=== PATIENT | female | born 1970 | race Caucasian/White ===

== ENCOUNTER 2017-05-11 04:09 | Emergency (ER) | payer OTHER ==
[~2017-05-11] VITALS: Ht 165.1 cm; Wt 121.3 kg
[~2017-05-11 04:09] MED LIST: TPM100 PO; TRAZ100T29 PO
[2017-05-11 04:14] VITALS: TEMP 36.6; Ht 165.1 cm; Wt 121.3 kg
[2017-05-11] MEDS ORDERED: KETOROLAC TROMETHAMINE 30 MG/ML VIAL IV STA (04:32)
[2017-05-11] MEDS ORDERED: PROCHLORPERAZINE 5 MG/ML 2 ML VIAL IV STA (04:32)
[2017-05-11] MEDS ORDERED: DiphenhydrAMINE HCL 50 MG/ML VIAL IV STA (04:32)
[2017-05-11] MEDS ORDERED: SODIUM CHLORIDE 0.9% 1000ML 1,000 ML IV ONE (04:45)
[2017-05-11] MEDS ORDERED: DEXAMETHASONE **PF** INJ 10 MG/ML VIAL IV ONE (04:45)
[2017-05-11 06:10] VITALS: BP 103/77; PULSE 81; O2SAT 96
--- NOTE | 2017-05-12 00:03 | EMERGENCY ROOM VISIT NOTE ---
History First contact with patient: 04:16 Chief Complaint: HEADACHE Stated Complaint: MIGRAINE History of Present Illness The patient is a 46 year old female who presents to the Emergency Room with complaints of migraine headache symptoms that have been worsening over the past one day. The patient reports a history of chronic migraine headaches. She does take Topamax daily and usually this helps control her symptoms well. She has had breakthrough migraines in the past, and this feels similar to her bad migraines. She has attempted ibuprofen at home without relief of symptoms. She has not had fever or chills. Relates to worsen her symptoms, but she is without neck pain, chest pain, chest tightness, shortness of breath, numbness, or paresthesias. She states that previous imaging of her head has been normal. She rates her discomfort a 9/10. Review of Systems More than 10 systems were reviewed and otherwise negative with the exception of history of present illness. Past Medical/Surgical History Medical Problems: (1) Migraines Surgical Problems: (1) History of hysterectomy Family History FHx: cancer FHx: hypertension Social History Smoking Status: Never Smoker Alcohol Use: none Drug Use: none Marital Status: single Housing Status: lives with family Occupation Status: employed Current/Historical Medications Scheduled Topiramate (Topiramate), 100 MG PO BID Trazodone Hcl (Trazodone), 100 MG PO HS Physical Exam Vital Signs Date Time Temp Pulse Resp B/P (MAP) Pulse Ox O2 Delivery O2 Flow Rate FiO2 05/11/17 06:10 81 18 103/77 96 05/11/17 05:15 84 18 108/72 95 Room Air 05/11/17 04:14 36.6 100 18 152/110 95 Room Air Physical Exam VITALS: Vitals are noted on the nurse's note and reviewed by myself. Vital signs stable. GENERAL: Well-developed, well-nourished, white female, who appears uncomfortable and is resting in a darkened emergency department room. NECK: Supple without nuchal rigidity. No lymphadenopathy. No thyromegaly. Cervical spine is nontender. No meningismus. HEART: Regular rate and rhythm without murmurs gallops or rubs. LUNGS: Clear to auscultation bilaterally without wheezes, rales or rhonchi. No retractions or accessory muscle use. ABDOMEN: Positive normal bowel sounds x 4. Soft, nontender, without masses or organomegaly. No guarding or rebound tenderness. MUSCULOSKELETAL: No muscle atrophy, erythema, or edema noted. Full range of motion without joint tenderness in all extremities. NEURO: Patient was alert and oriented to person place and time. CN II through XII grossly intact. No focal neurological deficits Medical Decision & Procedures Medications Administered Medications (Trade) Dose Ordered Sig/Tamar Route Start Time Stop Time Status Last Admin Dose Admin Diphenhydramine HCl (Benadryl Inj) 50 mg NOW STAT IV 05/11/17 04:32 05/11/17 04:34 DC 05/11/17 04:32 50 MG Prochlorperazine Edisylate (Compazine Inj) 10 mg NOW STAT IV 05/11/17 04:32 05/11/17 04:34 DC 05/11/17 04:32 10 MG Sodium Chloride 1,000 ml @ 999 mls/hr Q1H1M ONCE IV 05/11/17 04:45 05/11/17 05:45 DC 05/11/17 04:45 999 MLS/HR Ketorolac Tromethamine (Toradol Inj) 30 mg NOW STAT IV 05/11/17 04:32 05/11/17 04:34 DC 05/11/17 04:32 30 MG Dexamethasone Sodium Phosphate (Dexamethasone Inj Pf) 10 mg NOW ONCE IV 05/11/17 04:45 05/11/17 04:46 DC 05/11/17 04:45 10 MG ED Course Physical exam and history were performed. Nursing notes, EMR, and Medication List were personally reviewed. Patient appears to have migraine headache symptoms worsening over the past one day. The patient states this is similar to her normal bad migraines. She is seen intermittently here for migraines, and every few years does seem to have migraines similar to this. I discussed the possibility of reimaging, but utilizing shared decision making elected against this. IV access was established and the patient was given IV Benadryl, IV Compazine, IV Toradol, IV fluids, and IV contrast. The patient was monitored for greater than one hour here in the department. She felt markedly improved after medication here in the department. She was able to rest very comfortably and had near complete resolution of her pain. Overall the patient appears well for discharge home. She is to follow with her primary care physician for ongoing care. The patient was discharged home under the care of a female sql data architect who is acting as the local company truck driver today. The chart was completed utilizing [employer] Speech Voice Recognition Software. Grammatical errors, random word insertions, pronoun errors, and incomplete sentences are an occasional consequence of this system due to software limitations, ambient noise, and hardware issues. Any formal questions or concerns about the content, text, or information contained within the body of this dictation should be directly addressed to the provider for clarification. . Medical Decision The differential diagnosis includes, but is not limited to: acute intracranial bleed, meningitis, encephalitis, mass or mass effect, sinusitis, infection, tumor, headache, temporal arteritis and carbon monoxide exposure, and migraine. Impression Primary Impression: Migraine Departure Information Dispostion Home / Self-Care Condition GOOD Referrals Emma Fortune DO (PCP) Forms HOME CARE DOCUMENTATION FORM, IMPORTANT VISIT INFORMATION Patient Instructions My [facility] Additional Instructions You were seen and evaluated today on an emergency basis only. This is not a substitute for, or an effort to provide, complete comprehensive medical care. It is not possible to recognize and treat all injuries or illnesses in a single emergency department visit. For this reason it is recommended that you followup with your primary care physician or neurologist this week for ongoing care and evaluation. DO NOT drive, drink alcohol, operate machinery, or perform dangerous activities today. You were given medications in the ER that can affect your ability to safely function or operate a vehicle. Rest today in a quiet, peaceful, dark environment and get a full 8-10 hrs of sleep tonight. Avoid loud noises, smoke/smoking, alcohol, bright lights, stress, or physical exertion today to minimize the chance the headache may return. Continue current medications. Ibuprofen(Motrin, Advil) may be used for fever or pain. Use 600mg every six hours as needed. Take with food. Avoid using more than 2400mg in a 24 hour period. Do not use 2400mg per day for more than three consecutive days without physician direction. Prolonged inappropriate use can lead to stomach upset or ulcers. (AND/OR) Acetaminophen(Tylenol) may be used for fever or pain. Use 1000mg every six hours as needed. Avoid using more than 4000mg in a 24 hour period. Return to the ER for passing out, worsening headache, vision problems, neck stiffness/pain, fevers, vomiting, worsening of your condition, or as needed.
== END 2017-05-11 06:11 | disposition home or self-care (01) ==
LOC: C.EDB 04:10
DX: G43.909 Migraine, unspecified, not intractable, without status migrainosus (principal); Z90.710 Acquired absence of both cervix and uterus; Z80.9 Family history of malignant neoplasm, unspecified; Z82.49 Family history of ischemic heart disease and other diseases of the circulatory system